=== PATIENT | female | born 1965 | race Caucasian/White ===

== ENCOUNTER → 2017-03-13 | Outpatient (CLI) | payer OTHER | LOC: RAD 01:21 | DX: Z12.31 Encounter for screening mammogram for malignant neoplasm of breast (principal) ==

== ENCOUNTER → 2018-03-29 | Outpatient (CLI) | payer OTHER | LOC: RAD 03:35 | DX: Z12.31 Encounter for screening mammogram for malignant neoplasm of breast (principal) ==

== ENCOUNTER → 2019-04-04 | Outpatient (CLI) | payer OTHER | LOC: BC 09:57 | DX: Z12.31 Encounter for screening mammogram for malignant neoplasm of breast (principal) ==

== ENCOUNTER → 2020-04-05 | Outpatient (CLI) | payer OTHER | LOC: BC 14:14 | PROVIDERS: ATTEND Obstetrics & Gynecology | DX: Z12.31 Encounter for screening mammogram for malignant neoplasm of breast (principal) ==

== ENCOUNTER → 2020-11-21 | Outpatient (CLI) | payer OTHER | LOC: RAD 15:42 | PROVIDERS: ATTEND Family Medicine | DX: M79.641 Pain in right hand (principal); M79.642 Pain in left hand; M19.90 Unspecified osteoarthritis, unspecified site ==

== ENCOUNTER → 2021-04-10 | Outpatient (CLI) | payer OTHER | LOC: BC 04-08 13:45 | PROVIDERS: ATTEND Family Medicine | DX: Z12.31 Encounter for screening mammogram for malignant neoplasm of breast (principal); N64.89 Other specified disorders of breast ==